=== PATIENT | female | born 1990 | race Caucasian/White ===

== ENCOUNTER 2021-03-17 07:18 | Emergency (ER) | payer BC, OTHER ==
[2021-03-17] MEDS ORDERED: SODIUM CHLORIDE 0.9% 1,000 ML IV STA (07:55)
[2021-03-17] MEDS ORDERED: ONDANSETRON 4 MG/2 ML VIAL IVP STA (07:55)
[2021-03-17] MEDS ORDERED: diphenhydrAMINE INJ 50 MG/ML VIAL IVP STA (07:56)
[2021-03-17] MEDS ORDERED: DEXAMETHASONE 10 MG/ML VIAL IVP STA (07:56)
[2021-03-17 08:19] LABS: BASOPHILS % (AUTO) 0.3 %; EOSINOPHILS # (AUTO) 0.2 10^3/uL (0.0-0.7); EOSINOPHILS % (AUTO) 1.7 %; HCT - HEMATOCRIT 44.1 % (37.0-47.0); LYMPHOCYTES % (AUTO) 8.8 %; MEAN CORPUSCULAR HEMOGLOBIN 30.2 pg (27.0-31.0); MEAN CORPUSCULAR VOLUME 88.9 fL (81.0-99.0); MONOCYTES # (AUTO) 0.5 10^3/uL (0.0-1.0); MONOCYTES % (AUTO) 4.4 %; NEUTROPHILS # (AUTO) 9.7 10^3/uL (1.5-6.6); NEUTROPHILS % (AUTO) 84.5 %; PLT - PLATELET COUNT 223 10^3/uL (130-450); RED BLOOD COUNT 4.96 10^6/uL (4.20-5.40); RED CELL DISTRIBUTION WIDTH 12.9 % (12.0-15.0); WHITE BLOOD COUNT 11.4 x10^3/uL (4.8-10.8)
[2021-03-17 08:32] LABS: BILIRUBIN,URINE NEGATIVE (NEGATIVE); CLARITY,URINE SL. CLOUDY (CLEAR); GLUCOSE, URINE (UA) NEGATIVE (NEGATIVE); KETONES,URINE (UA) NEGATIVE (NEGATIVE); LEUKOCYTE ESTERASE, URINE SMALL (NEGATIVE); NITRITE,URINE NEGATIVE (NEGATIVE); OCCULT BLOOD,URINE NEGATIVE (NEGATIVE); PH,URINE 7.5 PH (5.0-7.5); PROTEIN,URINE NEGATIVE (NEGATIVE); UROBILINOGEN,URINE 0.2 (NORMAL) E.U./dL (NORMAL)
[2021-03-17 08:33] LABS: HCG UR QUAL NEGATIVE
--- NOTE | 2021-03-17 08:34 | ED Physician Documentation ---
PD HPI NVD - Stated complaint Stated Complaint: ALLERGIC REACTION - Chief complaint Chief Complaint: Allergic Rx - History obtained from History obtained from: Patient - History of Present Illness Timing - onset: Enter time (0200), Last night Timing - duration: Hours Timing - details: Gradual onset, Still present Associated symptoms: Abdominal pain Contributing factors: Recent antibiotics Improved by: Vomiting Similar symptoms before: Has not had sx before Recently seen: Other (dentist) - Additonal information Additional information: 30-year-old female is on her sixth day of clindamycin for a dental infection and she has developed some nausea and vomiting as well as some swelling to her tongue. She does not feel that she has any compromise to her airway and she does not have hives. She is not on lisinopril. She feels the infection has resolved. Review of Systems Constitutional: reports: Sweats. denies: Fever Eyes: denies: Decreased vision Ears: denies: Ear pain Nose: denies: Congestion Throat: denies: Sore throat Cardiac: reports: Chest pain / pressure (heart burn). denies: Palpitations Respiratory: denies: Dyspnea, Cough GI: reports: Nausea, Vomiting. denies: Abdominal Pain, Diarrhea : denies: Dysuria, Frequency Skin: denies: Rash Musculoskeletal: denies: Neck pain, Back pain, Extremity pain Neurologic: denies: Generalized weakness, Focal weakness, Numbness PD PAST MEDICAL HISTORY - Past Medical History : Kidney stones - Past Surgical History Past Surgical History: No - Present Medications Home Medications: Ambulatory Orders Medication Instructions Recorded Confirmed Hydrocodone/Acetaminophen [[place] 1 each PO Q6H PRN #20 tablet 02/01/16 5-325 Tablet] Levonorgestrel [Mirena] 1 each IY DAILY 02/01/16 02/01/16 Ondansetron HCl [Zofran] 4 mg PO Q6H PRN #20 tablet 02/01/16 Phenazopyridine [Pyridium] 200 mg PO TID 5 Days tablet 02/01/16 cephALEXin [Keflex] 500 mg PO QID #24 capsule 02/01/16 Ondansetron Odt [Zofran] 4 mg TL Q6H PRN #10 tablet 03/17/21 - Allergies Allergies/Adverse Reactions: Allergies Allergy/AdvReac Type Severity Reaction Status Date / Time amoxicillin trihydrate * Allergy Rash Verified 03/17/21 07:26 [From Augmentin] potassium clavulanate * Allergy Rash Verified 03/17/21 07:26 [From Augmentin] - Social History Does the pt smoke?: No Smoking Status: Never smoker Does the pt drink ETOH?: No Does the pt have substance abuse?: No - Immunizations Immunizations are current?: Yes - POLST Patient has POLST: No PD ED PE NORMAL - Vitals Vital signs reviewed: Yes (hypertnesive mild ) - General General: Alert and oriented X 3, No acute distress, Well developed/nourished - HEENT HEENT: Atraumatic, PERRL, EOMI - Neck Neck: Supple, no meningeal sign, No bony TTP - Cardiac Cardiac: RRR, No murmur - Respiratory Respiratory: No respiratory distress, Clear bilaterally - Abdomen Abdomen: Normal bowel sounds, Soft, Non tender, Non distended, No organomegaly - Back Back: No CVA TTP, No spinal TTP - Derm Derm: Normal color, Warm and dry, No rash - Extremities Extremities: No deformity, No edema - Neuro Neuro: Alert and oriented X 3, operations asst 2-12 intact, No motor deficit, No sensory deficit, Normal speech Eye Opening: Spontaneous Motor: Obeys Commands Verbal: Oriented GCS Score: 15 - Psych Psych: Normal mood, Normal affect Results - Vitals Vitals: Vital Signs - 24 hr 03/17/21 07:23 Temperature 36.9 C Heart Rate 86 Respiratory 15 Rate Blood Pressure 131/72 H O2 Saturation 99 Oxygen O2 Source Room air - Labs Labs: Laboratory Tests 03/17/21 03/17/21 03/17/21 07:55 07:55 08:10 WBC 11.4 H RBC 4.96 Hgb 15.0 Hct 44.1 MCV 88.9 MCH 30.2 MCHC 34.0 RDW 12.9 Plt Count 223 MPV 11.0 H Neut # (Auto) 9.7 H Lymph # (Auto) 1.0 L [place] # (Auto) 0.5 Eos # (Auto) 0.2 Baso # (Auto) 0.0 Absolute Nucleated RBC 0.00 Nucleated RBC % 0.0 Sodium 139 Potassium 4.0 Chloride 104 Carbon Dioxide 26 Anion Gap 9.0 BUN 12 Creatinine 0.8 Estimated GFR (MDRD) 84 L Glucose 164 H Calcium 9.2 Total Bilirubin 0.7 AST 15 ALT 13 Alkaline Phosphatase 54 Total Protein 7.0 Albumin 4.5 Globulin 2.5 Albumin/Globulin Ratio 1.8 Lipase 66 H Urine Color YELLOW Urine Clarity SL. CLOUDY Urine pH 7.5 Ur Specific [place] 1.015 Urine Protein NEGATIVE Urine Glucose (UA) NEGATIVE Urine Ketones NEGATIVE Urine Occult Blood NEGATIVE Urine Nitrite NEGATIVE Urine Bilirubin NEGATIVE Urine Urobilinogen 0.2 (NORMAL) Ur Leukocyte Esterase SMALL H Urine RBC 0-5 Urine WBC 0-3 Ur Squamous Epith Cells MANY Squamous H Urine Bacteria Moderate H Ur Microscopic Review INDICATED Urine Culture Comments NOT INDICATED Urine HCG, Qual NEGATIVE PD MEDICAL DECISION MAKING - ED course Complexity details: reviewed results, re-evaluated patient, considered d ifferential, d/w patient ED course: 30-year-old female on clindamycin for a dental infection has developed antibiotic associated gastroenteritis with vomiting. She has had a lot of heartburn associated with this as well. She has discontinued her antibiotic yesterday we have provided some IV fluid and antiemetic this morning. We will provide more antiemetic and the patient will take probiotic. I have encouraged her to take antacid for treatment of heartburn. Departure - Departure Disposition: 01 Home, Self Care Clinical Impression: Antibiotic drug intolerance Condition: Stable Instructions: ED Drug React Adverse Other Follow-Up: Your, doctor [Other] Prescriptions: Ondansetron Odt [Zofran] 4 mg TL Q6H PRN #10 tablet PRN Reason: Nausea / Vomiting
[2021-03-17 08:36] LABS: ALBUMIN 4.5 g/dL (3.2-5.5); ALBUMIN/GLOBULIN RATIO 1.8 (1.0-2.2); BILIRUBIN,TOTAL 0.7 mg/dL (0.2-1.0); CALCIUM 9.2 mg/dL (8.5-10.3); CREATININE 0.8 mg/dL (0.4-1.0)
[2021-03-17 08:38] LABS: BACTERIA,URINE Moderate /HPF (None Seen); RBC,URINE 0-5 /HPF (0-5); SQUAMOUS EPITHELIAL CELL,UR MANY Squamous (<= Few); WBC,URINE 0-3 /HPF (0-5)
[2021-03-17 09:20] VITALS: BP 133/90
== END 2021-03-17 09:20 | disposition home or self-care (01) ==
LOC: ED 07:18
DX: K52.1 Toxic gastroenteritis and colitis (principal); R12 Heartburn; T36.8X5A Adverse effect of other systemic antibiotics, initial encounter
CPT/HCPCS: 36415; 80053; 81001; 81025; 83690; 85025; 96361; 96374; 96375; 99283; J1200; 81003; 87086

== ENCOUNTER 2023-05-09 23:44 | Emergency (ER) | payer OTHER ==
[2023-05-10 00:05] LABS: GLUCOSE, URINE (UA) NEGATIVE (NEGATIVE); KETONES,URINE (UA) 15 mg/dL (NEGATIVE); LEUKOCYTE ESTERASE, URINE NEGATIVE (NEGATIVE); NITRITE,URINE NEGATIVE (NEGATIVE); OCCULT BLOOD,URINE TRACE-INTA (NEGATIVE); PH,URINE 5.5 PH (5.0-7.5); PROTEIN,URINE 30 mg/dL (NEGATIVE); UROBILINOGEN,URINE 0.2 (NORMAL) E.U./dL (NORMAL)
[2023-05-10 00:09] LABS: BILIRUBIN,URINE NEGATIVE (NEGATIVE); CLARITY,URINE HAZY (CLEAR); HCG UR QUAL NEGATIVE; ICTOTEST,URINE NEGATIVE
[2023-05-10 00:12] LABS: BACTERIA,URINE Many /HPF (None Seen); RBC,URINE 0-5 /HPF (0-5); SQUAMOUS EPITHELIAL CELL,UR MANY Squamous (<= Few)
[2023-05-10 00:13] LABS: AMORPHOUS SEDIMENT,UR Few /LPF; MUCUS,URINE Few Strands
[2023-05-10 00:20] LABS: BASOPHILS % (AUTO) 0.5 %; EOSINOPHILS # (AUTO) 0.2 10^3/uL (0.0-0.7); EOSINOPHILS % (AUTO) 2.5 %; HCT - HEMATOCRIT 42.2 % (37.0-47.0); HGB - HEMOGLOBIN 14.5 g/dL (12.0-16.0); LYMPHOCYTES # (AUTO) 2.6 10^3/uL (1.5-3.5); LYMPHOCYTES % (AUTO) 35.9 %; MEAN CORPUSCULAR HEMOGLOBIN 30.8 pg (27.0-31.0); MEAN CORPUSCULAR HGB CONC 34.4 g/dL (32.0-36.0); MEAN CORPUSCULAR VOLUME 89.6 fL (81.0-99.0); MEAN PLATELET VOLUME 10.4 fL (7.9-10.8); MONOCYTES # (AUTO) 0.5 10^3/uL (0.0-1.0); MONOCYTES % (AUTO) 6.9 %; NEUTROPHILS # (AUTO) 3.9 10^3/uL (1.5-6.6); NEUTROPHILS % (AUTO) 54.1 %; PLT - PLATELET COUNT 218 10^3/uL (130-450); RED BLOOD COUNT 4.71 10^6/uL (4.20-5.40); RED CELL DISTRIBUTION WIDTH 12.5 % (12.0-15.0); WHITE BLOOD COUNT 7.3 x10^3/uL (4.8-10.8)
[2023-05-10 00:30] LABS: ALBUMIN 4.4 g/dL (3.2-5.5); ALBUMIN/GLOBULIN RATIO 1.5 (1.0-2.2); CALCIUM 8.9 mg/dL (8.5-10.3); CREATININE 0.8 mg/dL (0.4-1.0); POTASSIUM 3.8 mmol/L (3.5-5.0); TOTAL PROTEIN 7.4 g/dL (6.7-8.2)
--- NOTE | 2023-05-10 01:16 | ED Physician Documentation ---
PD HPI ABD PAIN - Stated complaint Stated Complaint: STOMACH PX - Chief complaint Chief Complaint: Abd Pain - History obtained from History obtained from: Patient - Additional information Additional information: HPI from patient. Patient c/o sudden onset left back/flank pain at approximately 6 pm tonight while at home at rest. Nausea but no vomiting. Worse with palpation, movement. She says it feels similar to symptoms associated with previous renal colic. Review of Systems Constitutional: reports: Reviewed and negative Cardiac: reports: Reviewed and negative Respiratory: reports: Reviewed and negative GI: reports: Nausea. denies: Vomiting : denies: Dysuria, Frequency, Hematuria, Now EGA Musculoskeletal: reports: Back pain PD PAST MEDICAL HISTORY - Past Medical History Past Medical History: Yes : Kidney stones - Past Surgical History Past Surgical History: No - Present Medications Home Medications: Ambulatory Orders Medication Instructions Recorded Confirmed HYDROcod/ACETAM 5/325 [[place] 5/325] 1 - 2 tablet PO Q6H PRN #14 tablet 05/10/23 Ondansetron Odt [Zofran Odt] 4 mg TL Q6H PRN #14 tablet 05/10/23 - Allergies Allergies/Adverse Reactions: Allergies Allergy/AdvReac Type Severity Reaction Status Date / Time amoxicillin trihydrate * Allergy Rash Verified 05/09/23 23:52 [From Augmentin] potassium clavulanate * Allergy Rash Verified 05/09/23 23:52 [From Augmentin] - Social History Does the pt smoke?: No Smoking Status: Never smoker Does the pt drink ETOH?: No Does the pt have substance abuse?: No - Immunizations Immunizations are current?: Yes - POLST Patient has POLST: No PD ED PE NORMAL - Vitals Vital signs reviewed: Yes - General General: Alert and oriented X 3, No acute distress, Well developed/nourished - Cardiac Cardiac: RRR, No murmur - Respiratory Respiratory: No respiratory distress, Clear bilaterally - Abdomen Abdomen: Normal bowel sounds, Soft, Non tender, Non distended - Back Back: No CVA TTP - Derm Derm: No rash Results - Vitals Vitals: Oxygen O2 Source Room air - Labs Labs: Laboratory Tests 05/10/23 05/10/23 05/10/23 00:00 00:11 00:11 WBC 7.3 RBC 4.71 Hgb 14.5 Hct 42.2 MCV 89.6 MCH 30.8 MCHC 34.4 RDW 12.5 Plt Count 218 MPV 10.4 Neut # (Auto) 3.9 Lymph # (Auto) 2.6 [place] # (Auto) 0.5 Eos # (Auto) 0.2 Baso # (Auto) 0.0 Absolute Nucleated RBC 0.00 Nucleated RBC % 0.0 Sodium 138 Potassium 3.8 Chloride 104 Carbon Dioxide 26 Anion Gap 8.0 BUN 15 Creatinine 0.8 Estimated GFR (MDRD) 83 L Glucose 140 H Calcium 8.9 Total Bilirubin 1.0 AST 16 ALT 19 Alkaline Phosphatase 53 Total Protein 7.4 Albumin 4.4 Globulin 3.0 Albumin/Globulin Ratio 1.5 Lipase 37 Urine Color YELLOW Urine Clarity HAZY Urine pH 5.5 Ur Specific [place] >=1.030 H Urine Protein 30 H Urine Glucose (UA) NEGATIVE Urine Ketones 15 H Urine Occult Blood TRACE-INTA Urine Nitrite NEGATIVE Urine Bilirubin NEGATIVE Urine Urobilinogen 0.2 (NORMAL) Ur Leukocyte Esterase NEGATIVE Urine RBC 0-5 Urine WBC 4-5 Ur Squamous Epith Cells MANY Squamous H Amorphous Sediment Few Urine Bacteria Many H Urine Mucus Few Strands Ur Microscopic Review INDICATED Urine Culture Comments NOT INDICATED Urine HCG, Qual NEGATIVE PD Medical Decision Making - ED course Complexity details: reviewed results, re-evaluated patient, considered differential, d/w patient ED course: Unremarkable blood tests, UA. Normal CBC. Normal ER panel except 140 glucose. UA has many bacteria but presence of many squames suggest contaminated specimen. There are no RBC nor WBC nor nitrites. Thus, UTI seems unlikely . Absence of hematuria makes renal colic less likely, although she says the pain and waxing and waning pattern feel similar to previously (CT-diagnosed) symptomatic kidney stones she has had in the past (I do not see such studies in my system, but she says these studies were undertaken at another hospital, and her description seems to support this (she mentions size of the stone and that she was able to pass the stone into a "coffee filter" (per patient) device through which she strained her urine, even mentions the color was that of sand)). Given this, and that to's symptoms have some elements c/w renal colic, I recommended CT A/P for diagnostic and prognostic purposes. She declines, says she does not have insurance nor "the money to afford a CT scan right now" (per patient). Given her h/o renal colic and that she is uncomfortable but not in extremis, and that alternative, dangerous diagnoses are not likely (based on H+P and test results thus far), it is reasonable to forego CT scan and treat patient symptomatically. She is given take-home vicodin and zofran with rx for both medications. I would typically also give/rx flomax, but without confirmatory study, I did not feel comfortable with this medication at this time. Return precautions are carefully reviewed. I advised her to seek follow up, ideally with a urologist if renal colic, but probably best to start with a GP for reevaluation and consideration of a confirmatory study such as CT. Departure - Departure Disposition: 01 Home, Self Care Clinical Impression: Flank pain Condition: Good Instructions: ED Flank Pain Uncertain Cause Follow-Up: Aiden Molina MD [Provider Admit Priv/Credential] - Prescriptions: HYDROcod/ACETAM 5/325 [[place] 5/325] 1 - 2 tablet PO Q6H PRN #14 tablet PRN Reason: Pain Ondansetron Odt [Zofran Odt] 4 mg TL Q6H PRN #14 tablet PRN Reason: Nausea / Vomiting Comments: There were no concerning or diagnostic findings on your blood test tonight. Similarly, there are no diagnostic findings on the urinalysis (no findings to suggest infectious process such as urinary tract infection). You have indicated that your symptoms feel very similar to previous symptoms associated with kidney stones that you have had. Kidney stone is best diagnosed on the CT scan, but you have indicated that you would prefer to not have this test performed at this time. This is a reasonable approach given that your symptoms are similar to previous episodes of renal colic (kidney stone pain) that you have had. Prescriptions for ondansetron (antinausea medication) and Vicodin (narcotic/opiate pain medication) are being provided. You should follow-up with your primary care provider, next available appointment, for reevaluation. If you do not have a primary care provider, you can contact your insurance provider to obtain appropriate referral to one. If you do not have health insurance, you can use the information given for one of the local primary care providers/practices, provided elsewhere on these discharge sheets. Forms: PCP List Discharge Date/Time: 05/10/23 02:04
[2023-05-10] MEDS ORDERED: ONDANSETRON ODT 4 MG Prepack 2 TL PRN (01:36)
[2023-05-10] MEDS ORDERED: HYDROcod/ACET 5/325 Prepack 4 PO STA (01:36)
[2023-05-10 01:50] VITALS: BP 125/77; O2SAT 98
== END 2023-05-10 02:04 | disposition home or self-care (01) ==
LOC: ED 23:44
DX: R10.9 Unspecified abdominal pain (principal)
CPT/HCPCS: 36415; 80053; 81001; 81003; 81025; 83690; 85025; 87086; 99283; 99284